=== PATIENT | male | born 1990 | race Caucasian/White ===

== ENCOUNTER 2017-05-06 10:48 | Emergency (ER) | payer OTHER ==
[~2017-05-06] VITALS: Ht 165.1 cm; Wt 62.6 kg
--- OUTSIDE RECORDS SUMMARY | 2017-05-06 10:53 | XMS REPORT | Continuity of Care Document ---
Author Author [facility] Organization [facility] Address Unknown Phone Unavailable Allergies Medications Problems Procedures Results Encounters ACCT No. Visit Date/Time Discharge Status Pt. Type Provider Facility Loc./Unit Complaint [id number] 05/19/2015 15:27:00 2014 23:59:59 CLS Outpatient BRENDEN IGLESIAS [facility] OCC
[2017-05-06] MEDS ORDERED: NS IV 1000 ML 1,000 ML IV ONE (10:59)
[2017-05-06] MEDS ORDERED: LIDOCAINE 2% VISCOUS 15 ML UDC ONE (11:04)
[2017-05-06] MEDS ORDERED: ANTACID SUSP 30 ML UDC (MYLANTA) ONE (11:05)
--- NOTE | 2017-05-06 11:11 | ED Chest Pain ---
General Chief Complaint: Chest Pain Stated Complaint: CP Nursing Triage Note: PT CO OF CHEST PAIN STARTED ABOUT 1000 DURING PHYSCIAL EXCERCISE TEST FOR RESERVES STATES STARTED DURING RUNNING PORTION RATED PAIN 10/10 AT THIS X IS 4/10 Nursing Sepsis Screen: No Definite Risk Source: patient, other Exam Limitations: no limitations History of Present Illness Time seen by provider: 11:00 Initial Comments Patient presents to ER by private conveyance with a chief complaint he started feeling substernal mid chest 10 out of 10 severe pain while in the middle of a 2 mile run for [employer] physical fitness test today. He says he had to stop and vomiting times one and had eaten for servings of oatmeal prior to the CT test. He says he did well with the pushups and sit-ups without any pain or shortness of breath. He has no history of heart disease or chest pains like this. He has no asthma and does not smoke. He quit chewing tobacco about 4 months ago. He only rarely drinks alcohol and denies any recreational drug use. He does not take any medications or have other significant medical history. He denies a family history of early-onset coronary disease prior to the age of 50, sudden cardiac or heart disease in general. He denies hypothyroidism, hypertension, diabetes, cholesterolemia. He does not take any herbal supplements or vsgb-tev-ugxyucw medicines. He says occasionally he will take away protein when preparing for physical fitness test. He says the pain was so severe that it stopped him and doubled him over and he could not continue to run. He denies any history of heartburn, acid indigestion or reflux. His bowel body who accompanies him to the ER says he was sweating at the time not profusely but definitely had sweats. He denies any nausea or radiation of his pain anywhere. He also denies any trauma to the chest. Allergies and Home Medications Allergies Coded Allergies: No Known Drug Allergies (Unverified , 05/06/17) Home Medications No Active Prescriptions or Reported Meds Review of Systems Constitutional: No chills, No fever, No malaise EENTM: No Blurred Vision, No Double Vision, No Eye Pain Respiratory: Denies Cough, Denies Shortness of Air, Denies Wheezing Cardiovascular: See HPI, Chest Pain, Denies Edema, Denies Irregular Heart Rate , Denies Lightheadedness Gastrointestinal: Denies Abdominal Pain, Denies Constipated, Denies Diarrhea Genitourinary: Denies Burning, Denies Discharge Musculoskeletal: No back pain, No joint pain, No muscle stiffness, No muscle cramps Skin: No pruritus, No rash Psychiatric/Neurological: Denies Headache, Denies Numbness, Denies Paresthesia Hematologic/Lymphatic: Denies Easy Bleeding, Denies Easy Bruising Past Vuismwp-Hmbizn-Nitclv Hx Patient Social History Alcohol Use: Occasionally Uses Recreational Drug Use: No Smoking Status: Never a Smoker Type Used: Smokeless Tobacco (quit 4 months ago) Recent Foreign Travel: No Contact w/Someone Who Travel: No Recent Infectious Disease Expo: No Recent Hopitalizations: No Physical Abuse: No Sexual Abuse: No Surgeries History of Surgeries: Yes Surgeries: Appendectomy Psychosocial Suicide Risk Score: 0 Physical Exam Vital Signs Vital Sign - Last 12Hours Capillary Refill : Less Than 3 Seconds General Appearance: No Apparent Distress, WD/WN HEENT: PERRL/EOMI, Pharynx Normal (mucous membranes are moist) Neck: Full Range of Motion, Non Tender, Supple Respiratory: Chest Non Tender, Lungs Clear, Normal Breath Sounds Cardiovascular: Regular Rate, Rhythm, No Edema, No Gallop, No Murmur, Normal Peripheral Pulses Gastrointestinal: Normal Bowel Sounds, Non Tender, Soft Extremity: Normal Capillary Refill, No Pedal Edema Neurologic/Psychiatric: Alert, Oriented x3 Skin: Normal Color, Warm/Dry Progress/Results/Core Measures Results/Orders Lab Results Laboratory Tests Test 05/06/17 10:50 05/06/17 12:00 Range/Units White Blood Count 5.5 4.3-11.0 10^3/uL Red Blood Count 5.06 4.35-5.85 10^6/uL Hemoglobin 15.2 13.3-17.7 G/DL Hematocrit 44 40-54 % Mean Corpuscular Volume 87 80-99 FL Mean Corpuscular Hemoglobin 30 25-34 PG Mean Corpuscular Hemoglobin Concent 35 32-36 G/DL Red Cell Distribution Width 12.2 10.0-14.5 % Platelet Count 187 130-400 10^3/uL Mean Platelet Volume 10.4 7.4-10.4 FL Neutrophils (%) (Auto) 77 H 42-75 % Lymphocytes (%) (Auto) 17 12-44 % Monocytes (%) (Auto) 6 0-12 % Eosinophils (%) (Auto) 0 0-10 % Basophils (%) (Auto) 0 0-10 % Neutrophils # (Auto) 4.2 1.8-7.8 X 10^3 Lymphocytes # (Auto) 0.9 L 1.0-4.0 X 10^3 Monocytes # (Auto) 0.3 0.0-1.0 X 10^3 Eosinophils # (Auto) 0.0 0.0-0.3 10^3/uL Basophils # (Auto) 0.0 0.0-0.1 10^3/uL Prothrombin Time 13.1 12.2-14.7 SEC INR Comment 1.0 0.8-1.4 Activated Partial Thromboplast Time 25 24-35 SEC D-Dimer 0.28 0.00-0.49 UG/ML Sodium Level 140 135-145 MMOL/L Potassium Level 4.2 3.6-5.0 MMOL/L Chloride Level 103 98-107 MMOL/L Carbon Dioxide Level 29 21-32 MMOL/L Anion Gap 8 5-14 MMOL/L Blood Urea Nitrogen 18 7-18 MG/DL Creatinine 1.32 H 0.60-1.30 MG/DL Estimat Glomerular Filtration Rate > 60 BUN/Creatinine Ratio 14 Glucose Level 111 H 70-105 MG/DL Calcium Level 10.0 8.5-10.1 MG/DL Magnesium Level 2.6 H 1.8-2.4 MG/DL Total Bilirubin 1.1 H 0.1-1.0 MG/DL Aspartate Amino Transf (AST/SGOT) 22 5-34 U/L Alanine Aminotransferase (ALT/SGPT) 24 0-55 U/L Alkaline Phosphatase 71 40-136 U/L Troponin I < 0.30 <0.30 NG/ML Total Protein 7.3 6.4-8.2 GM/DL Albumin 4.4 3.2-4.5 GM/DL Thyroid Stimulating Hormone (TSH) 2.29 0.35-4.94 UIU/ML Serum Alcohol < 10 <10 MG/DL Urine Color YELLOW Urine Clarity CLEAR Urine pH 7 5-9 Urine Specific [place] 1.010 L 1.016-1.022 Urine Protein NEGATIVE NEGATIVE Urine Glucose (UA) NEGATIVE NEGATIVE Urine Ketones NEGATIVE NEGATIVE Urine Nitrite NEGATIVE NEGATIVE Urine Bilirubin NEGATIVE NEGATIVE Urine Urobilinogen NORMAL NORMAL MG/DL Urine Leukocyte Esterase NEGATIVE NEGATIVE Urine RBC (Auto) NEGATIVE NEGATIVE Urine RBC NONE /HPF Urine WBC NONE /HPF Urine Crystals NONE /LPF Urine Bacteria NEGATIVE /HPF Urine Casts NONE /LPF Urine Mucus NEGATIVE /LPF Urine Culture Indicated NO Urine Opiates Screen NEGATIVE NEGATIVE Urine Oxycodone Screen NEGATIVE NEGATIVE Urine Methadone Screen NEGATIVE NEGATIVE Urine Propoxyphene Screen NEGATIVE NEGATIVE Urine Barbiturates Screen NEGATIVE NEGATIVE Ur Tricyclic Antidepressants Screen NEGATIVE NEGATIVE Urine Phencyclidine Screen NEGATIVE NEGATIVE Urine Amphetamines Screen NEGATIVE NEGATIVE Urine Methamphetamines Screen NEGATIVE NEGATIVE Urine Benzodiazepines Screen NEGATIVE NEGATIVE Urine Cocaine Screen NEGATIVE NEGATIVE Urine Cannabinoids Screen NEGATIVE NEGATIVE My Orders Orders - NASRIN ANTONIO Cbc With Automated Diff (05/06/17 10:59) Comprehensive Metabolic Panel (05/06/17 10:59) Fibrin Degradation Products (05/06/17 10:59) Drug Screen Stat (Urine) (05/06/17 10:59) Magnesium (05/06/17 10:59) Protime With Inr (05/06/17 10:59) Partial Thromboplastin Time (05/06/17 10:59) Thyroid Stimulating Hormone (05/06/17 10:59) Troponin I (05/06/17 10:59) Ua Culture If Indicated (05/06/17 10:59) Chest Pa/Lat (2 View) (05/06/17 10:59) Ekg Tracing (05/06/17 10:59) Saline Lock/Iv-Start (05/06/17 10:59) Monitor-Rhythm Ecg Trace Only (05/06/17 10:59) Ns Iv 1000 Ml (Sodium Chloride 0.9%) (05/06/17 10:59) Alcohol (05/06/17 11:04) Lidocaine 2% Viscous 15 Ml (Xylocaine Vi (05/06/17 11:04) Antacid Suspension (Mylanta Suspension (05/06/17 11:05) Orthostatic Vital Signs (05/06/17 11:16) Medications Given in ED Current Medications Medications Dose Ordered Sig/Gracy Route Start Time Stop Time Status Last Admin Dose Admin Al Hydrox/Mg Hydrox/Simethicone 30 ml STK-MED ONCE .ROUTE 05/06/17 11:05 05/06/17 11:13 DC 05/06/17 11:13 30 ML Lidocaine HCl 15 ml STK-MED ONCE .ROUTE 05/06/17 11:04 05/06/17 11:13 DC 05/06/17 11:14 15 ML Sodium Chloride 1,000 ml @ 0 mls/hr Q0M ONCE IV 05/06/17 10:59 05/06/17 11:03 DC 05/06/17 11:12 1,000 MLS/HR Vital Signs/I&O Vital Sign - Last 12Hours 05/06/17 05/06/17 05/06/17 10:50 10:50 11:02 Temp 97.4 Pulse 109 103 106 103 Resp 18 B/P (MAP) 113/76 Pulse Ox 98 O2 Delivery Room Air Room Air Blood Pressure Mean: 88 Progress Note #1: Time: 11:15 Progress Note Sinus tachycardia os lay from dehydration? Progress Note #2: Time: 11:45 Progress Note Chest pain is the same, not reproducible to chest palpation and no shortness of breath or nausea. The GI cocktail made no difference in his symptoms. There is no pneumothorax seen on chest x-ray. Orthostatic vital signs were all normal. His creatinine is elevated from presumably normal baseline. BUNs is not elevated. D-dimer is also normal. Progress Note #3: Time: 12:43 Progress Note No evidence of pneumothorax, pulmonary wasn't, pericarditis/cardiac, esophageal , respiratory, chest wall origin for his chest pain in the lab/imaging. We'll have him follow-up with his primary care physician in one to 2 weeks. ECG Initial ECG Impression Date: May 06, 2017 Initial ECG Impression Time: 10:50 Initial ECG Rate: 108 Initial ECG Rhythm: S.Tach Initial ECG Intervals: Normal Initial ECG Impression: Normal Initial ECG Comparisson: No Previous ECG Available Comment No T-wave elevation or depression. Looks like sinus tachycardia. Diagnostic Imaging Diagonstic Imaging: Xray Plain Films/CT/US/NM/MRI: chest Comments No acute cardiopulmonary processes noted. NAME: EUGENE COREAS [facility] REC#: [id number] PHYSICIAN: NASRIN ANTONIO MD CC: DELROY LEDESMA MD; NASRIN ANTONIO Page 1 of 1 RADIOLOGY REPORT VIA [facility]. [place], [place] CC: DELROY LEDESMA MD; NASRIN ANTONIO Page 1 of 1 RADIOLOGY [facility] [id number] PT STATUS: REG ER : 1990 PHYSICIAN: NASRIN ANTONIO MD ADMIT DATE: 05/06/17/ER Signed Date of Exam: 05/06/17 CHEST PA/LAT (2 VIEW) CHEST PA/LAT (2 VIEW) Indication: Left-sided chest pain. Comparison: None available. Findings: No focal pneumonic consolidation, pleural effusion or pneumothorax. Normal heart size and pulmonary vasculature. No displaced rib fractures. Impression: No acute cardiopulmonary process. Dictated by: Dictated on workstation # [id number] Dict: 05/06/174 Trans: 05/06/171133 Interpreted by: DELROY LEDESMA MD Electronically signed by: DELROY LEDESMA MD 05/06/174 Reviewed: Reviewed by Me Departure Impression Impression: Primary Impression: Chest pain Qualified Codes: R07.9 - Chest pain, unspecified Disposition: 01 HOME, SELF-CARE Condition: Stable Departure-Patient Inst. Decision time for Depature: 12:44 Referrals: MAXIMINO WHITMAN DO (PCP/Family) Primary Care Physician Patient Instructions: Chest Pain That Is Not Caused by the Heart (DC) Add. Discharge Instructions: Plan to follow up with your primary care physician in one to 2 weeks for further management of your chest pain. If you begin to have worsening chest pain , nausea, shortness of breath return to the ER immediately for further evaluation. All discharge instructions reviewed with patient and/or family. Voiced understanding. Scripts No Active Prescriptions or Reported Meds Work/School Note: Work Release Form Date Seen in the Emergency Department: May 06, 2017 Return to Work: May 06, 2017 Restrictions: Need Release from Doctor Copy Copies To 1: MAXIMINO WHITMAN TITUS J May 06, 2017 11:11
[2017-05-06 11:35] LABS: BASOPHILS % (AUTO) 0 % (0-10); EOSINOPHILS % (AUTO) 0 % (0-10); LYMPHOCYTES # (AUTO) 0.9 X 10^3 (1.0-4.0); LYMPHOCYTES % (AUTO) 17 % (12-44); MEAN CORPUSCULAR HEMOGLOBIN 30 PG (25-34); MEAN CORPUSCULAR HGB CONC 35 G/DL (32-36); MEAN CORPUSCULAR VOLUME 87 FL (80-99); MEAN PLATELET VOLUME 10.4 FL (7.4-10.4); MONOCYTES # (AUTO) 0.3 X 10^3 (0.0-1.0); MONOCYTES % (AUTO) 6 % (0-12); NEUTROPHILS # (AUTO) 4.2 X 10^3 (1.8-7.8); NEUTROPHILS % (AUTO) 77 % (42-75); PLATELET COUNT 187 10^3/uL (130-400); RED BLOOD COUNT 5.06 10^6/uL (4.35-5.85); RED CELL DISTRIBUTION WIDTH 12.2 % (10.0-14.5); WHITE BLOOD COUNT 5.5 10^3/uL (4.3-11.0)
--- NOTE | 2017-05-06 11:37 | Diagnostic Imaging Report ---
CHEST PA/LAT (2 VIEW) Indication: Left-sided chest pain. Comparison: None available. Findings: No focal pneumonic consolidation, pleural effusion or pneumothorax. Normal heart size and pulmonary vasculature. No displaced rib fractures. Impression: No acute cardiopulmonary process. Dictated by: Dictated on workstation # [id number]
[2017-05-06 11:42] LABS: PROTHROMBIN TIME PATIENT 13.1 SEC (12.2-14.7)
[2017-05-06 11:52] LABS: ALANINE AMINOTRANSFERASE 24 U/L (0-55); ALBUMIN 4.4 GM/DL (3.2-4.5); ALCOHOL < 10 MG/DL (<10); ANION GAP 8 MMOL/L (5-14); ASPARTATE AMINO TRANSFERASE 22 U/L (5-34); BILIRUBIN,TOTAL 1.1 MG/DL (0.1-1.0); BLOOD UREA NITROGEN 18 MG/DL (7-18); BUN/CREATININE RATIO 14; CARBON DIOXIDE 29 MMOL/L (21-32); CHLORIDE 103 MMOL/L (98-107); CREATININE SERUM 1.32 MG/DL (0.60-1.30); GFR ESTIMATED > 60; GLUCOSE 111 MG/DL (70-105); MAGNESIUM 2.6 MG/DL (1.8-2.4); POTASSIUM 4.2 MMOL/L (3.6-5.0); SODIUM 140 MMOL/L (135-145); TOTAL PROTEIN 7.3 GM/DL (6.4-8.2)
[2017-05-06 12:07] LABS: BILIRUBIN,URINE NEGATIVE (NEGATIVE); KETONES,URINE NEGATIVE (NEGATIVE); LEUKOCYTE ESTERASE ,URINE NEGATIVE (NEGATIVE); NITRITE,URINE NEGATIVE (NEGATIVE); PH,URINE 7 (5-9); PROTEIN,URINE NEGATIVE (NEGATIVE); UROBILINOGEN,URINE NORMAL (NORMAL)
[2017-05-06 12:12] LABS: THYROID STIMULATING HORMONE 2.29 UIU/ML (0.35-4.94); TROPONIN I < 0.30 NG/ML (<0.30)
[2017-05-06 13:05] VITALS: BP 117/65
== END 2017-05-06 13:05 | disposition home or self-care (01) ==
LOC: EDUNIT# 10:48 → ER 10:50
DX: R07.2 Precordial pain (principal); Z90.49 Acquired absence of other specified parts of digestive tract; Z87.891 Personal history of nicotine dependence
CPT/HCPCS: 36415; 71020; 80053; 80306; 80320; 81000; 83735; 84443; 84484; 85025; 85379; 85610; 85730; 93005; 93041